=== PATIENT | male | born 1955 | race Caucasian/White ===

== ENCOUNTER 2017-10-30 13:51 | Emergency (ER) | payer BC, OTHER ==
--- NOTE | 2017-10-30 15:45 | ER ---
Nurse's Notes [facility] Name: Lee Cottrell Age: 62 yrs Sex: Male : 1955 Arrival Date: 10/30/2017 Time: 13:51 Bed Waiting Private MD: Shoaib Curiel Diagnosis: Presentation: 10/30 14:18 Presenting complaint: Patient states: L hip pain that radiates down L leg that began aa5 this morning. Pt reports a history of sciatica, but it's never bothered him this bad. Transition of care: patient was not received from another setting of care. Onset of symptoms was October 30, 2017. Risk Assessment: Do you want to hurt yourself or someone else? Patient reports no desire to harm self or others. Initial Sepsis Screen: Does the patient meet any 2 criteria? No. Patient's initial sepsis screen is negative. Does the patient have a suspected source of infection? No. Patient's initial sepsis screen is negative. Care prior to arrival: None. 14:18 Method Of Arrival: Ambulatory aa5 14:18 Acuity: AKI 4 aa5 Historical: - Allergies: 14:19 No Known Allergies; aa5 - Immunization history:: Adult Immunizations up to date. - Social history:: Smoking status: Patient uses tobacco products, smokes one-half pack cigarettes per day. - Ebola Screening: : Patient denies exposure to infectious person Patient denies travel to an Ebola-affected area in the 21 days before illness onset. Vital Signs: 14:19 BP 121 / 83; Pulse 78; Resp 16; Temp 99.0(TE); Pulse Ox 98% on R/A; Weight 97.52 kg; aa5 Height 5 ft. 11 in. (180.34 cm); Pain 4/10; 14:19 Body Mass Index 29.99 (97.52 kg, 180.34 cm) aa5 ED Course: 13:51 Patient arrived in ED. sb2 13:52 Shoaib Curiel MD is Private Physician. sb2 14:19 Triage completed. aa5 14:19 Arm band placed on left wrist. aa5 15:44 Edu Ivan MD is Attending Physician. aa5 Administered Medications: No medications were administered Outcome: 15:45 Patient left the ED. aa5 Signatures: Mccarty, Helene, RN RN aa5 Billeau, Pam sb2
== END 2017-10-30 15:45 | disposition left against medical advice (07) ==
LOC: ER 13:51
DX: Z53.21 Procedure and treatment not carried out due to patient leaving prior to being seen by health care provider (principal)
CPT/HCPCS: 99281

== ENCOUNTER 2019-09-06 15:05 | Emergency (ER) | payer BC ==
[2019-09-06 15:52] LABS: Absolute Lymphocytes (CBC) 1.8 K/uL (0.7-4.9); Basophils % 1.5 % (0-1.3); Hematocrit 48.2 % (39.6-49.0); Lymphocytes % 28.7 % (15.3-44.8); MPV 8.6 fL (7.6-11.3); RBC Red Blood Cell Count 4.72 M/uL (4.33-5.43)
[2019-09-06 15:53] LABS: Protime INR 0.97
[2019-09-06] MEDS ORDERED: ASPIRIN 81 MG CHEWABLE TABLET ONE (15:53)
[2019-09-06] MEDS ORDERED: ONDANSETRON 4 MG/2 ML VIAL ONE (15:54)
[2019-09-06] MEDS ORDERED: MORPHINE 4 MG/ML SYR ONE ×2 (15:54→19:00)
[2019-09-06 16:17] LABS: Albumin 3.9 g/dL (3.4-5.0); Bilirubin Direct 0.2 mg/dL (0-0.2); Magnesium 1.8 mg/dL (1.8-2.4); Potassium 3.4 mmol/L (3.5-5.1); Protein, Total 7.4 g/dL (6.4-8.2); Troponin (Emerg Dept Use Only) 0.13 ng/mL (0.0-0.045)
[2019-09-06 16:18] LABS: Bilirubin Total 0.7 mg/dL (0.2-1.0)
[2019-09-06] MEDS ORDERED: NITROGLYCERIN 0.4 MG/TAB SL ONE (16:32)
--- NOTE | 2019-09-06 16:32 | RAD REPORT ---
EXAM DESCRIPTION: RAD - Chest Single View - 09/06/2019 4:25 pm CLINICAL HISTORY: CHEST PAIN Chest pain. COMPARISON: No comparisons FINDINGS: Portable technique limits examination quality. The lungs are emphysematous but grossly clear. The heart is normal in size. No displaced fractures. IMPRESSION: No acute intrathoracic process suspected.
[2019-09-06] MEDS ORDERED: ENOXAPARIN 80 MG/0.8 ML SQ ONE (16:33)
[2019-09-06] MEDS ORDERED: CLOPIDOGREL 75 MG TABLET ONE (17:05)
--- NOTE | 2019-09-06 18:08 | EDPHYS ---
Physician Documentation [facility] Name: Lee Cottrell Age: 64 yrs Sex: Male : 1955 Arrival Date: 09/06/2019 Time: 15:11 Bed 23 Private MD: ED Physician Edu Ivan HPI: 09/05 15:59 This 64 yrs old Male presents to ER via Wheelchair with complaints of chest cp pain. 15:59 The patient or guardian reports chest pain that is located primarily in the anterior cp chest wall, left. Onset: intermittent times 2 weeks, pain returned this morning. The pain radiates to the left shoulder. 15:59 The chest pain is described as aching, a pressure. cp 15:59 Duration: The patient or guardian reports a single episode, that is still ongoing, and cp worsening. The patient has been recently seen by a physician: Dr. Lynne dorado scrap burner, in the office, 2 week(s) ago, with similar presenting complaints. Patient reports taking 2 baby aspirin today. Historical: - Allergies: 15:18 No Known Allergies; ll1 - PMHx: 15:18 Hypertension; ll1 - PSHx: 15:18 Heart stents; ll1 - Immunization history:: Flu vaccine is not up to date. - Social history:: Smoking status: Patient reports the use of cigarette tobacco products, smokes one pack cigarettes per day. Patient uses alcohol, on a daily basis. 2 to 3 mixed drinks nightly. Patient/guardian denies using street drugs. ROS: 16:05 Constitutional: Negative for body aches, chills, fever, poor PO intake. cp 16:05 Eyes: Negative for injury, pain, redness, and discharge. cp 16:05 ENT: Negative for drainage from ear(s), ear pain, sore throat, difficulty swallowing, difficulty handling secretions. 16:05 Cardiovascular: Positive for chest pain, Negative for edema, palpitations. 16:05 Respiratory: Negative for cough, shortness of breath, wheezing. 16:05 Abdomen/GI: Negative for abdominal pain, vomiting, diarrhea, constipation. 16:05 Back: Negative for radiated pain. 16:05 Skin: Negative for rash. 16:05 Neuro: Negative for altered mental status, headache, numbness, weakness. 16:05 All other systems are negative. Exam: 15:50 ECG was reviewed by the Attending Physician. cp 16:10 Constitutional: The patient appears in no acute distress, alert, awake, cp non-diaphoretic, non-toxic, well developed, well nourished. 16:10 Head/Face: Normocephalic, atraumatic. cp 16:10 Eyes: Periorbital structures: appear normal, Conjunctiva: normal, no exudate, no injection, Sclera: no appreciated abnormality, Lids and lashes: appear normal, bilaterally. 16:10 ENT: External ear(s): are unremarkable, Nose: is normal, Mouth: is normal, Posterior pharynx: is normal, airway is patent, no erythema, no exudate. 16:10 Neck: ROM/movement: is normal, is supple, without pain, no range of motions limitations, no nuchal rigidity. 16:10 Chest/axilla: Inspection: normal, Palpation: crepitus, is not appreciated, tenderness, that is moderate, of the left breast, that partially reproduces the patient's complaints. 16:10 Cardiovascular: Rate: normal, Rhythm: regular, Heart sounds: murmur, not appreciated, rub, not appreciated, gallop, not appreciated, Edema: is not appreciated, JVD: is not appreciated. 16:10 Respiratory: the patient does not display signs of respiratory distress, Respirations: normal, no use of accessory muscles, no retractions, labored breathing, is not present, Breath sounds: are clear throughout, no decreased breath sounds, no stridor, no wheezing. 16:10 Abdomen/GI: Inspection: abdomen appears normal, Bowel sounds: active, all quadrants, Palpation: abdomen is soft and non-tender, in all quadrants. 16:10 Back: pain, is absent, ROM is normal. 16:10 Musculoskeletal/extremity: Exam is negative for decreased range of motion, deformity, injury. 16:10 Skin: no rash present. 16:10 Neuro: Orientation: to person, place \T\ time. Mentation: is normal, Cerebellar function: is grossly normal, Motor: moves all fours, strength is normal, Sensation: is normal. Vital Signs: 15:16 BP 175 / 89; Pulse 81; Resp 18; Temp 98.1; Pulse Ox 98% ; Pain 7/10; ll1 15:50 BP 185 / 86 RA; Pulse 74; hb 15:56 BP 165 / 86 LA; Pulse 73; hb 16:30 BP 166 / 76; Pulse 75; Resp 15; Pulse Ox 98% ; Pain 5/10; hb 16:36 Weight 85.73 kg; ss 17:45 BP 145 / 72; Pulse 64; Resp 16; Pulse Ox 97% on R/A; Pain 2/10; hb 18:30 BP 168 / 78; Pulse 66; Resp 15; Pulse Ox 99% on R/A; Pain 2/10; hb 19:19 BP 177 / 73; Pulse 54; Resp 18; Pulse Ox 99% ; Pain 0/10; ll1 MDM: 15:31 Patient medically screened. cp 16:00 Differential diagnosis: abnormal EKG, acute myocardial infarction, costochondritis, cp pneumonia, pneumothorax, pulmonary embolus, stable angina, thoracic aortic disection, unstable angina. 16:28 The patient was given aspirin in the Emergency Department. Data reviewed: vital signs, cp nurses notes, lab test result(s), EKG, radiologic studies, plain films. Test interpretation: by ED physician or midlevel provider: ECG, plain radiologic studies. Counseling: I had a detailed discussion with the patient and/or guardian regarding: the historical points, exam findings, and any diagnostic results supporting the discharge/admit diagnosis, lab results, radiology results. Response to treatment: improved. Physician consultation: Javy Chung DO was called at 16:30, was contacted at 16:30, regarding admission, to the telemetry unit. patient's condition. 16:59 Physician consultation: DR Batista, scrap burner \T\[facility] coordinate transfer of patient. 09/05 15:32 Order name: Basic Metabolic Panel; Complete Time: 16:21 cp 09/05 16:21 Interpretation: Normal except: K 3.4; GLUC 152; GFR 79. cp 09/05 15:32 Order name: CBC with Diff; Complete Time: 16:21 cp 09/05 16:22 Interpretation: Normal except: MCV 101.9; BASO% 1.5. cp 09/05 15:32 Order name: LFT's; Complete Time: 16:21 cp 09/05 15:32 Order name: Magnesium; Complete Time: 16:21 cp 09/05 15:32 Order name: NT PRO-BNP; Complete Time: 16:21 cp 09/05 15:32 Order name: PT-INR; Complete Time: 16:21 cp 09/05 15:32 Order name: Troponin (emerg Dept Use Only); Complete Time: 16:21 cp 09/05 16:22 Interpretation: Abnormal: TROPED 0.13. cp 09/05 15:32 Order name: XRAY Chest (1 view) 09/05 15:32 Order name: EKG; Complete Time: 15:34 cp 09/05 15:32 Order name: Cardiac monitoring; Complete Time: 15:56 cp 09/05 15:32 Order name: EKG - Nurse/Tech; Complete Time: 15:56 cp 09/05 15:32 Order name: IV Saline Lock; Complete Time: 15:56 cp 09/05 15:32 Order name: Labs collected and sent; Complete Time: 15:56 cp 09/05 15:32 Order name: O2 Per Protocol; Complete Time: 15:56 cp 09/05 15:32 Order name: O2 Sat Monitoring; Complete Time: 15:56 cp 09/05 15:32 Order name: Blood Pressure Recheck: bilateral upper extremity; Complete Time: 15:56 cp EC:50 Rate is 75 beats/min. Rhythm is regular. RI interval is normal. QRS interval is normal. cp QT interval is normal. T waves are Inverted in leads V3, V4, V5. Interpreted by me. Reviewed by me. Administered Medications: 15:55 Drug: Aspirin Chewable Tablet 162 mg Route: PO; hb 19:16 Follow up: Response: No adverse reaction; RASS: Alert and Calm (0) ll1 15:55 Drug: morphine 4 mg Route: IVP; Site: right antecubital; hb 19:16 Follow up: Response: No adverse reaction; Pain is decreased; RASS: Alert and Calm (0) ll1 15:55 Drug: Zofran (Ondansetron) 4 mg Route: IVP; Site: right antecubital; hb 19:17 Follow up: Response: No adverse reaction; RASS: Alert and Calm (0) ll1 19:17 Follow up: Response: No adverse reaction; RASS: Alert and Calm (0) ll1 16:37 Drug: Lovenox 1 mg/kg Route: Sub-Q; Site: abdomen; ss 19:17 Follow up: Response: No adverse reaction; RASS: Alert and Calm (0) ll1 16:37 Drug: Nitroglycerin 0.4 mg Route: Sublingual; ss 19:18 Follow up: Response: No adverse reaction; RASS: Alert and Calm (0) ll1 16:40 Drug: PlaVIX 300 mg Route: PO; hb 19:18 Follow up: Response: No adverse reaction; RASS: Alert and Calm (0) ll1 Disposition: 09/06 08:50 Co-signature as Attending Physician, Edu Ivan MD I agree with the assessment and kdr plan of care. Disposition: 09/06/19 18:07 Transfer ordered to [facility]. Diagnosis is Non-ST elevation (NSTEMI) myocardial infarction. - Reason for transfer: Higher level of care. - Accepting physician is DR Ramon. - Condition is Stable. - Problem is new. - Symptoms have improved. Signatures: Dispatcher [employer] EDMS Edu Ivan MD MD kdr Sadia Armas RN RN Miki Schafer PA PA cp Keyla Reddy RN RN Flory Bryson RN RN ll1 Corrections: (The following items were deleted from the chart) 09/05 19:15 18:07 09/06/2019 18:07 Transfer ordered to [facility]. Diagnosis is Non-ST ll1 elevation (NSTEMI) myocardial infarction. Reason for transfer: Higher level of care. Accepting physician is DR Ramon. Condition is Stable. Problem is new. Symptoms have improved. cp
--- NOTE | 2019-09-06 18:08 | ER ---
Nurse's Notes [facility] Name: Lee Cottrell Age: 64 yrs Sex: Male : 1955 Arrival Date: 09/06/2019 Time: 15:11 Bed 23 Private MD: Diagnosis: Non-ST elevation (NSTEMI) myocardial infarction Presentation: 09/05 15:16 Chief complaint: Patient states: Left sided CP for [address] Batista, EKG was ll1 normal. Pain was so severe today he came into ER to be checked out fully. Coronavirus screen: Proceed with normal triage. Patient denies a cough. Patient denies shortness of breath or difficulty breathing. Patient denies measured and/or subjective temperature greater than 100.4F prior to today's visit. Patient denies travel on a cruise ship or to a country the [facility] currently lists as an affected area. Patient denies contact with known and/or suspected case of COVID-19. Ebola Screen: Patient denies travel to an Ebola-affected area in the 21 days before illness onset. Initial Sepsis Screen: Does the patient have a suspected source of infection? No. Patient's initial sepsis screen is negative. Risk Assessment: Do you want to hurt yourself or someone else? Patient reports no desire to harm self or others. Onset of symptoms was August 23, 2019. 15:16 Method Of Arrival: Wheelchair ll1 15:16 Acuity: AKI 3 ll1 19:20 Initial Sepsis Screen: Does the patient meet any 2 criteria? No. Patient's initial ll1 sepsis screen is negative. Historical: - Allergies: 15:18 No Known Allergies; ll1 - PMHx: 15:18 Hypertension; ll1 - PSHx: 15:18 Heart stents; ll1 - Immunization history:: Flu vaccine is not up to date. - Social history:: Smoking status: Patient reports the use of cigarette tobacco products, smokes one pack cigarettes per day. Patient uses alcohol, on a daily basis. 2 to 3 mixed drinks nightly. Patient/guardian denies using street drugs. Screenin:20 Abuse screen: Denies threats or abuse. Denies injuries from another. Nutritional ss screening: No deficits noted. Tuberculosis screening: Never had TB. Fall Risk None identified. Assessment: 15:20 General: Appears in no apparent distress. Behavior is calm, cooperative, Denies fever, ss feeling ill, fatigue, chills. Pain: Complains of pain in anterior aspect of left upper chest Pain radiates to left scapular area Pain currently is 7 out of 10 on a pain scale. Quality of pain is described as aching, pressure, Pain began 1500 today. Pt reports pain occurred this severe two weeks ago, but went away. Pain has been ongoing but has not been this severe until today. Is continuous, Alleviated by nothing. Neuro: Level of Consciousness is awake, alert, obeys commands, Oriented to person, place, time, situation. Cardiovascular: Capillary refill < 3 seconds is brisk in bilateral fingers. Respiratory: Airway is patent Respiratory effort is even, unlabored, Respiratory pattern is regular, symmetrical. GI: Patient currently denies abdominal pain, diarrhea, nausea, vomiting. : No signs and/or symptoms were reported regarding the genitourinary system. EENT: Nares are clear. Derm: Skin is intact, is healthy with good turgor, Skin is dry, Skin is pink, warm \T\ dry. normal. 16:30 Reassessment: Patient appears in no apparent distress at this time. Patient and/or hb family updated on plan of care and expected duration. Pain level reassessed. Patient is alert, oriented x 3, equal unlabored respirations, skin warm/dry/pink. 17:30 Reassessment: Patient appears in no apparent distress at this time. Patient and/or hb family updated on plan of care and expected duration. Pain level reassessed. Patient is alert, oriented x 3, equal unlabored respirations, skin warm/dry/pink. 18:30 Reassessment: Patient appears in no apparent distress at this time. Patient and/or hb family updated on plan of care and expected duration. Pain level reassessed. Patient is alert, oriented x 3, equal unlabored respirations, skin warm/dry/pink. 19:15 Reassessment: Patient appears in no apparent distress at this time. Patient and/or hb family updated on plan of care and expected duration. Pain level reassessed. Patient is alert, oriented x 3, equal unlabored respirations, skin warm/dry/pink. Vital Signs: 15:16 BP 175 / 89; Pulse 81; Resp 18; Temp 98.1; Pulse Ox 98% ; Pain 7/10; ll1 15:50 BP 185 / 86 RA; Pulse 74; hb 15:56 BP 165 / 86 LA; Pulse 73; hb 16:30 BP 166 / 76; Pulse 75; Resp 15; Pulse Ox 98% ; Pain 5/10; hb 16:36 Weight 85.73 kg; ss 17:45 BP 145 / 72; Pulse 64; Resp 16; Pulse Ox 97% on R/A; Pain 2/10; hb 18:30 BP 168 / 78; Pulse 66; Resp 15; Pulse Ox 99% on R/A; Pain 2/10; hb 19:19 BP 177 / 73; Pulse 54; Resp 18; Pulse Ox 99% ; Pain 0/10; ll1 ED Course: 15:11 Patient arrived in ED. em1 15:15 Inserted saline lock: 20 gauge in right upper arm, using aseptic technique. Blood ss collected. 15:16 Miki Schafer PA is PHCP. cp 15:16 Edu Ivan MD is Attending Physician. cp 15:17 Triage completed. ll1 15:19 Arm band placed on Patient placed in an exam room, on a stretcher. ll1 15:20 Patient has correct armband on for positive identification. Bed in low position. Call ss light in reach. 15:43 Keyla Reddy, RN is Primary Nurse. hb 16:26 XRAY Chest (1 view) In Process Unspecified. EDMS 19:20 Patient transferred, IV remains in place. ll1 19:21 No provider procedures requiring assistance completed. ll1 Administered Medications: 15:55 Drug: Aspirin Chewable Tablet 162 mg Route: PO; hb 19:16 Follow up: Response: No adverse reaction; RASS: Alert and Calm (0) ll1 15:55 Drug: morphine 4 mg Route: IVP; Site: right antecubital; hb 19:16 Follow up: Response: No adverse reaction; Pain is decreased; RASS: Alert and Calm (0) ll1 15:55 Drug: Zofran (Ondansetron) 4 mg Route: IVP; Site: right antecubital; hb 19:17 Follow up: Response: No adverse reaction; RASS: Alert and Calm (0) ll1 19:17 Follow up: Response: No adverse reaction; RASS: Alert and Calm (0) ll1 16:37 Drug: Lovenox 1 mg/kg Route: Sub-Q; Site: abdomen; ss 19:17 Follow up: Response: No adverse reaction; RASS: Alert and Calm (0) ll1 16:37 Drug: Nitroglycerin 0.4 mg Route: Sublingual; ss 19:18 Follow up: Response: No adverse reaction; RASS: Alert and Calm (0) ll1 16:40 Drug: PlaVIX 300 mg Route: PO; hb 19:18 Follow up: Response: No adverse reaction; RASS: Alert and Calm (0) ll1 Outcome: 18:07 ER care complete, transfer ordered by . cp 19:15 Patient left the ED. 1 19:20 Transferred by ground EMS to [facility]. 1 19:20 Condition: stable 19:20 Instructed on the need for transfer. Signatures: Dispatcher [employer] Jaswinder Venegas em1 Sadia Armas, RN RN Miki Casas PA PA cp Baxter, Heather, RN ALBINO Flory Bryson RN RN 1
[2019-09-06 19:23] VITALS: TEMP 98.1
[2019-09-06 19:27] VITALS: BP 145/72; O2SAT 97
--- NOTE | 2019-09-07 18:33 | EKG ---
Test Date: 2019-09-06 Test Time: 15:41:37 Thread Singer: [place] MEASUREMENT RESULTS: Intervals: Rate: 75 RI: 136 QRSD: 96 QT: 396 QTc: 442 [place]: P: RI: 136 QRS: 42 T: 41 INTERPRETIVE STATEMENTS: Normal sinus rhythm T wave abnormality, consider anterior ischemia Abnormal ECG No previous ECG available for comparison Electronically Signed On 09-07-19 18:31:22 CDT by Evans Wang
== END 2019-09-06 19:15 | disposition short-term general hospital (02) ==
LOC: ER 15:05
DX: I21.4 Non-ST elevation (NSTEMI) myocardial infarction (principal); I10 Essential (primary) hypertension; Z72.0 Tobacco use; Z95.818 Presence of other cardiac implants and grafts
CPT/HCPCS: 85025; 80048; 36415; 83735; 85610; 80076; 84484; 83880; 71045; J1650; J2405; 93005